=== PATIENT | female | born 1955 | race Caucasian/White ===

== ENCOUNTER 2018-05-25 19:31 | Emergency (ER) | payer OTHER ==
[~2018-05-25] VITALS: Ht 170.2 cm; Wt 72.6 kg
[~2018-05-25 19:31] MED LIST: MOTRIN 600 MG600 MG PO
--- NOTE | 2018-05-25 20:36 | RADIOLOGY REPORT ---
EXAMINATION: RIGHT FOOT AND ANKLE 6 VIEWS CLINICAL INFORMATION: Pain. COMPARISON: None. TECHNIQUE: AP, lateral, oblique views of the right foot were obtained in addition to AP, lateral and oblique views of the right ankle. FINDINGS: There are no fractures or dislocations. There is no significant soft tissue swelling. No ankle joint effusion is identified. There is a small plantar surface calcaneal spur. IMPRESSION: No evidence for acute injury. Small plantar surface calcaneal spur.
--- NOTE | 2018-05-25 20:42 | ED UPPER/LOWER EXTREMITY COMPL ---
History of Present Illness General Chief Complaint: Lower Extremity Problems Stated Complaint: "HIT MY FOOT" RIGHT Source: patient Exam Limitations: no limitations Vital Signs & Intake/Output Vital Signs & Intake/Output Vital Signs Date Time Temp Pulse Resp B/P B/P Pulse O2 O2 Flow FiO2 Mean Ox Delivery Rate 05/25 2057 97.8 53 18 115/72 99 Room Air 05/25 2006 97.4 66 18 123/84 98 Room Air ED Intake and Output 05/26 0000 05/25 1200 Intake Total Output Total Balance Patient 160 lb Weight Allergies Coded Allergies: Penicillins (Intermediate, HIVES 05/25/18) morphine (Intermediate, VOMITING 05/25/18) MDX - Codeine (CODEINE) (VOMITS 05/28/12) MDX - Lactose (LACTOSE) (INTOLERANT 05/28/12) Reconcile Medications Ibuprofen (Motrin 600 MG Tab) 600 MG TABLET 1 TAB PO Q6P PRN PAIN with food Triage Note: 62F AMBULATES INTO ED WITH RIGHT DORSAL FOOT PAIN TO LATERAL SIDE AFTER BANGING IT ON THE VACUUM TWO DAYS AGO. APPEARS TO BE AT CONGRUENT STAGE OF ECCHYMOSIS AND SOMEWHAT SWOLLEN. STATES PAIN HAS REMAINED THE SAME, DESPITE USING EPSON SALT. Triage Nurses Notes Reviewed? yes Onset: Abrupt Duration: constant Timing: recent history Severity: severe Severity Numbers: 7 HPI: Patient is a 62-year-old female who presents emergency room stating that 2 days ago while vacuuming patient accidentally ran over her right foot and toes with the vacuum results pillow cleaner resulting in acute onset of pain and swelling and bruising. Patient did not take any medications today for her symptoms. Skin still intact no nail trauma (Vincenzo Sumner) Past History Travel History Traveled to [place] past 21 day No Medical History Any Pertinent Medical History? none Surgical History Surgical History: non-contributory Psychosocial History What is your primary language Sudanese Tobacco Use: Never used Family History Hx Contributory? No (Vincenzo Sumner) Review of Systems Review of Systems Constitutional: Reports: no symptoms. EENTM: Reports: no symptoms. Respiratory: Reports: no symptoms. Cardiovascular: Reports: no symptoms. Gastrointestinal/Abdominal: Reports: no symptoms. Genitourinary: Reports: no symptoms. Musculoskeletal: Reports: see HPI, joint pain. Skin: Reports: see HPI. Neurological/Psychological: Reports: no symptoms. Hematologic/Endocrine: Reports: no symptoms. Immunological: Reports: no symptoms. All Other Systems: Reviewed and Negative (Vincenzo Sumner) Physical Exam Physical Exam General Appearance: no apparent distress, alert, comfortable Head: atraumatic Eyes: Bilateral: normal appearance. Ears, Nose, Throat: hearing grossly normal Cardiovascular/Respiratory: no respiratory distress Peripheral Pulses: 2+ dorsalis pedis (R) Neurologic/Tendon: normal sensation, normal motor functions, normal tendon functions, responds to pain, no evidence tendon injury Skin: intact Diagram Feet Top 1) Mild point tenderness and ecchymosis noted skin intact no nail trauma dermatomes intact pedal pulse +2 (Vincenzo Sumner) Progress Differential Diagnosis: arterial insufficiency, compartment syndrome, contusion, dislocation, DVT, fracture, gout, septic arthritis, sprain, tendon injury Plan of Care: X-rays show no osseous injury patient was neurovascularly intact to right lower leg Diagnostic Imaging: Viewed by Me: Radiology Read. Radiology Impression: no acute abnormality, no fracture Comments: PATIENT: VANCE FELDMAN PRESENT AGE: 62 PATIENT ACCOUNT NO: [id number] : 56 LOCATION: [facility] ORDERING PHYSICIAN: Angel Menchaca MD SERVICE DATE: 05/25/18 EXAM TYPE: RAD - XRY-ANKLE 3 OR MORE VIEWS R; XRY-FOOT COMPLETE, R EXAMINATION: RIGHT FOOT AND ANKLE 6 VIEWS CLINICAL INFORMATION: Pain. COMPARISON: None. TECHNIQUE: AP, lateral, oblique views of the right foot were obtained in addition to AP, lateral and oblique views of the right ankle. FINDINGS: There are no fractures or dislocations. There is no significant soft tissue swelling. No ankle joint effusion is identified. There is a small plantar surface calcaneal spur. IMPRESSION: No evidence for acute injury. Small plantar surface calcaneal spur. DICTATED BY: David Cole MD DATE/TIME DICTATED:05/25/182024 ELECTRIC WELL LOGGING OPERATOR:RADHA DATE/TIME TRANSCRIBED:05/25/18 (Vincenzo Sumner) Departure Departure Disposition: HOME OR SELF CARE Condition: Stable Clinical Impression Primary Impression: Contusion of foot, right Secondary Impressions: Contusion of toe of right foot Referrals: Nickie BAIN,Esha Flor (PCP/Family) Additional Instructions: As discussed begin icing the area 20 minutes every 2 hours begin ibuprofen for pain and inflammation. IF symptoms worsen return to emergency room Departure Forms: Customer Survey General Discharge Information (Do GRANT,Vincenzo) PA/CELLULAR PLASTICS CUTTER Co-Sign Statement Statement: ED Attending supervision documentation- [x] I have reviewed the ED Record and agree with the PA's/CELLULAR PLASTICS CUTTER's documentation. (Bernarda BAIN,Angel Hernandez)
[2018-05-25 20:57] VITALS: BP 115/72
== END 2018-05-25 20:59 ==
LOC: ERH 19:31
DX: S90.31XA Contusion of right foot, initial encounter (principal); S90.121A Contusion of right lesser toe(s) without damage to nail, initial encounter; X58.XXXA Exposure to other specified factors, initial encounter; Y93.E3 Activity, vacuuming
CPT/HCPCS: 73610-RT; 73630-RT